=== PATIENT | female | born 1960 | race American Indian/Alaskan Native ===

== ENCOUNTER 2024-08-27 22:22 | Emergency (ER) | payer MEDICARE, MEDICAID, SELFPAY ==
--- NOTE | 2024-08-27 | ECG_ITS ---
Test Reason : chest pain Blood Pressure : */* mmHG Vent. Rate : 67 BPM Atrial Rate : 67 BPM P-R Int : 152 ms QRS Dur : 108 ms QT Int : 410 ms P-R-T Axes : 11 -23 14 degrees QTcB Int : 433 ms Normal sinus rhythm Incomplete right bundle branch block Minimal voltage criteria for LVH, may be normal variant ( R in aVL ) Borderline ECG No previous ECGs available Referred By: Generic ED Physician Electronically Signed By: MELISSA GIORDANO
[2024-08-27 22:24] VITALS: BP 131/64; PULSE 72; RESP 18; TEMP 36.7; O2SAT 98; BMI 31.0
[2024-08-27 22:59] LABS: MANUAL DIFF FLAG NO
[2024-08-27 23:00] LABS: Basophils Percent Auto 0.5 % (0-2); Eosinophils Absolute Auto 0.2 X10*3/uL (0.0-0.4); Eosinophils Percent Auto 2.8 % (0-4); Hemoglobin 11.9 g/dl (12.0-16.0); Imm Gran Abs Auto 0.03 X10*3/uL (0.00-0.03); Imm Gran Pct Auto 0.5 % (0.0-0.4); Lymphocytes Absolute Auto 1.4 X10*3/uL (1.2-4.9); Lymphocytes Percent Auto 21.8 % (20-40); Mean Corpuscular Hemoglobin 29.8 pg (27.0-33.0); Monocytes Absolute Auto 0.7 X10*3/uL (0.1-1.2); Monocytes Percent Auto 10.6 % (2-11); Neutrophils Absolute Auto 4.2 x10*3/uL (2.0-8.3); Neutrophils Percent Auto 63.8 % (45-73); Platelet Count 215 X10*3/uL (160-400); Red Cell Distribution Width 11.9 % (11.0-16.0); White Blood Count 6.5 X10*3/uL (4.8-10.8)
[2024-08-27 23:01] LABS: Appearance Urine Clear; Color Urine Yellow; Glucose Urine UA Negative (Negative); Leukocyte Esterase Urine Small (1+) (Negative); Nitrite Urine Negative (Negative); PH 6.5 (5.0-9.0); Specific Gravity - Urine 1.025 (1.005-1.025); UMIC TRIGGER UACC YES; Urine Blood Negative (Negative); Urine Ketones Negative (Negative); Urine Protein Negative (Neg-Trace)
[2024-08-27 23:10] LABS: Bacteria Urine None Seen (None Seen); Hyaline Casts Urine 0-2 /LPF (0-2); RBC Urine 0-2 /HPF (0-2); Squamous Epithelial Cell Urine 0-2 /HPF (0-2); UACC Culture Trigger YES; WBC Urine 0-5 /HPF (0-5)
[2024-08-27 23:16] LABS: Alanine Aminotransferase 22 U/L (0-31); Albumin Level 3.8 g/dL (3.5-5.0); Alkaline Phosphatase 123 U/L (39-117); Anion Gap 11 (12-20); Aspartate Amino Transferase 22 U/L (5-31); Bilirubin Total 0.2 mg/dL (0.0-1.0); Blood Urea Nitrogen 22 mg/dL (9-16); Calcium 8.9 mg/dL (8.4-10.2); Carbon Dioxide 25 mmol/L (22-29); Chloride 112 mmol/L (96-108); Creatinine Clr Calc Pharmacy 64.8; Estimated Glomerular Filt Rate 55; Glucose Random 122 mg/dL (60-115); Magnesium 1.9 mg/dL (1.6-2.6); Potassium 4.1 mmol/L (3.3-5.1); Sodium 144 mmol/L (135-145); Total Protein 6.9 g/dL (6.5-8.0)
[2024-08-27 23:25] LABS: Troponin-I High Sensitivity < 2.7 ng/L (<3.5-17.0)
[2024-08-27 23:36] LABS: Influenza A PCR NEGATIVE (Negative); Influenza B PCR NEGATIVE (Negative); Resp Syncy Virus RNA Qual PCR NEGATIVE (Negative); SARS COV2 PCR INHOUSE NEGATIVE (Negative)
--- NOTE | 2024-08-28 01:52 | ED_ITS ---
HPI - General Adult General Chief complaint: Headache Stated complaint: body aches Time Seen by Provider: 08/28/24 01:39 Source: patient Mode of arrival: ambulatory Limitations: no limitations History of Present Illness ED Provider: HPI narrative: Patient's history of chronic low back pain with sciatica comes here for worsening of the pain for last 1 got worse last 2 days also complaining of body aches no cough no fever no chills no urinary symptom Related Data Previous Rx's ?Medication ?Instructions ?Recorded cyclobenzaprine 10 mg tablet 10 mg PO Q8H #20 tabs 08/28/24 oxycodone 5 mg tablet 5 mg PO Q6H PRN pain #20 tabs 08/28/24 Allergies Allergy/AdvReac Type Severity Reaction Status Date / Time lisinopril Allergy Itching Verified 08/27/24 22:26 Review of Systems 2 Review of Systems: Yes all other systems are reviewed and are negative PMFSH Social History Social History Advance Directives: No Advance Directives Information Provided: Yes Do you have a plan to hurt others: No Plan Physical Exam ED Vital Signs: Vital Signs - 24 hr 08/27/24 22:24 08/28/24 02:48 08/28/24 03:09 Temperature 98.1 F 97.9 F 97.9 F Pulse Rate 72 61 61 Respiratory Rate 18 18 18 Blood Pressure 131/64 127/54 L 127/54 L Pulse Oximetry 98 98 98 Oxygen Delivery Method Room Air BMI result Body Mass Index 31.0 Appearance: Alert. Oriented X3. No acute distress. Eyes: No pallor or icterus ENT: Pharynx normal. Oral Mucosa moist Neck: Normal inspection. Neck supple. CVS: Normal heart rate and rhythm. Pulses normal. Respiratory: No respiratory distress. Equal air entry bilateral, no wheezing/rales/rhonchi Abdomen: Soft and nontender. Bowel sounds are present, no mass palpable, no CVA tenderness Skin: Skin warm and dry. Normal skin color. Normal skin turgor. Extremities: No lower extremity edema. No calf tenderness left sciatic notch tenderness SLR positive at 60 degrees Neuro: Oriented X 3. No motor deficit. No sensory deficit.No cerebellar signs , cranial nerves II-XII intact Medications Administered Discontinued Medications Generic Name Dose Route Start Last Admin Trade Name Freq PRN Reason Stop Dose Admin Cyclobenzaprine HCl 10 mg 08/28/24 01:49 08/28/24 02:12 Cyclobenzaprine Hcl 10 Mg Tablet PO 08/28/24 01:50 10 mg ONCE ONE Administration Oxycodone HCl 10 mg 08/28/24 01:49 08/28/24 02:12 Oxycodone Hcl Immed Release 5 Mg Tablet PO 08/28/24 01:50 10 mg ONCE ONE Administration Medical Decision Making Medical Decision Making [facility] Narrative: Patient with chronic low back pain with sciatica had previous workup and follow up with pain clinic no acute abnormal labs patient felt better after oxycodone patient is ambulatory in the ED Differential Diagnosis Differential Diagnoses: The differential diagnosis associated with the presentation includes Low back pain/sciatica/viral syndrome/UTI Lab Data [facility] Lab Attestation statement: I reviewed the patient's lab results. 08/27/24 22:53 08/27/24 22:53 Labs: Lab Results 08/27/24 08/27/24 Range/Units 22:53 22:55 WBC 6.5 (4.8-10.8) X10*3/uL RBC 4.00 L (4.20-5.50) X10*6/uL Hgb 11.9 L (12.0-16.0) g/dl Hct 34.0 L (37.0-47.0) % MCV 85.0 (80.0-98.0) fL MCH 29.8 (27.0-33.0) pg MCHC 35.0 (31.0-35.0) g/dl RDW 11.9 (11.0-16.0) % Plt Count 215 (160-400) X10*3/uL MPV 10.0 (9.4-12.3) fL Immature Gran % (Auto) 0.5 H (0.0-0.4) % Neut % (Auto) 63.8 (45-73) % Lymph % (Auto) 21.8 (20-40) % [place] % (Auto) 10.6 (2-11) % Eos % (Auto) 2.8 (0-4) % Baso % (Auto) 0.5 (0-2) % Lymph # (Auto) 1.4 (1.2-4.9) X10*3/uL [place] # (Auto) 0.7 (0.1-1.2) X10*3/uL Eos # (Auto) 0.2 (0.0-0.4) X10*3/uL Baso # (Auto) 0.0 (0.0-0.2) X10*3/uL Abs Immat Gran (auto) 0.03 (0.00-0.03) X10*3/uL Absolute Neuts (auto) 4.2 (2.0-8.3) x10*3/uL Absolute Nucleated RBC 0.000 (0.0-0.012) X10*3/uL Nucleated RBC % (auto) 0.0 (0.0-0.2) /100WBC Sodium 144 (135-145) mmol/L Potassium 4.1 (3.3-5.1) mmol/L Chloride 112 H (96-108) mmol/L Carbon Dioxide 25 (22-29) mmol/L Anion Gap 11 L (12-20) BUN 22 H (9-16) mg/dL Creatinine 1.01 (0.5-1.4) mg/dL Estim Creat Clear Calc 64.8 Estimated GFR 55 Random Glucose 122 H (60-115) mg/dL Calcium 8.9 (8.4-10.2) mg/dL Magnesium 1.9 (1.6-2.6) mg/dL Total Bilirubin 0.2 (0.0-1.0) mg/dL AST 22 (5-31) U/L ALT 22 (0-31) U/L Alkaline Phosphatase 123 H (39-117) U/L Troponin I High Sens < 2.7 (<3.5-17.0) ng/L Total Protein 6.9 (6.5-8.0) g/dL Albumin 3.8 (3.5-5.0) g/dL Urine Color Yellow Urine Appearance Clear Urine pH 6.5 (5.0-9.0) Ur Specific [place] 1.025 (1.005-1.025) Urine Protein Negative (Neg-Trace) mg/dL Urine Glucose (UA) Negative (Negative) mg/dL Urine Ketones Negative (Negative) mg/dL Urine Blood Negative (Negative) Urine Nitrite Negative (Negative) Ur Leukocyte Esterase Small (1+) H (Negative) Urine RBC 0-2 (0-2) /HPF Urine WBC 0-5 (0-5) /HPF Ur Squamous Epith Cells 0-2 (0-2) /HPF Urine Bacteria None Seen (None Seen) Hyaline Casts 0-2 (0-2) /LPF Influenza Type A (PCR) NEGATIVE (Negative) Influenza Type B (PCR) NEGATIVE (Negative) RSV RNA Qual (PCR) NEGATIVE (Negative) SARS-CoV-2 RNA (RT-PCR) NEGATIVE (Negative) Discharge Plan Discharge Clinical Impression: Sciatic pain Patient Disposition: Home, Self-Care Instructions: Sciatica (ED) Additional Instructions: Take pain medication muscle relaxant as prescribed Follow up with the back specialist Prescriptions: New cyclobenzaprine 10 mg tablet 10 mg PO Q8H Qty: 20 0RF oxycodone 5 mg tablet 5 mg PO Q6H PRN (Reason: pain) Qty: 20 0RF Rx Instructions: Partial Fill upon patient request. Interventions: ED Discharge Assessment Last Done: 08/28/24 03:09 Discharge Date/Time: 08/28/24 02:45 Print Language: Guatemalan
[2024-08-28] MEDS: oxyCODONE HCl Immed Release 5 MG TABLET 10 MG PO (02:12)
[2024-08-28] MEDS: Cyclobenzaprine HCl 10 MG TABLET PO (02:12)
--- OUTSIDE RECORDS SUMMARY | 2024-08-28 02:29 | XMS_ITS | Data Portability ---
Author Organization [facility] [place] [facility] MRI Address [address] [place] [address] Care Team Providers Care Cardiac Specialist Name Role Phone TRAVON MENDOZA Primary Care Provider TRAVON MENDOZA Referring Provider Assessment Encounter Date Assessment Date Assessment LastModified by Organization Details LastModified Time 06/25/2020 06/25/2020 Natural history discussed with patient at length regarding osteoarthritis of the knee. I recommended a intra-articular cortisone injection to the knee today which the patient has refused. She would like to try prescription strength anti-inflammatori es first as well as some home exercises rather than formal physical therapy. I have instructed the patient to take the anti-inflammatory with with food and discontinue all other NSAIDs including ibuprofen and Aleve. Follow-up with me in 1 month for clinical reassessment. If at that time, she continues to have persistent or worsening pain we will consider a intra-articular cortisone injection as well as aspiration. Not available 06/25/2020 11:12:37 Plan of Treatment Reminders Order Date Submit Date Provider Last Modified By Organization Details Last Modified Time Details Appointments None recorded. Lab None recorded. Referral None recorded. Procedures None recorded. Surgeries None recorded. Imaging None recorded. Medication Orders meloxicam 7.5 mg tablet 2020 021 [id number], [address], [place], [phone], 11:13:06 Patient TargetsNo targets recorded. Patient Instructions Encounter Date Encounter Id Patient Instructions Last Modified By Organization Details Last Modified Time 06/25/2020 [id number] knee: exercises Not available 06/25/2020 11:12:31 Reason for Referral None Reported. Medical Equipment None Reported. Allergies Allergen ID Allergen Name Allergen Category Reaction Reaction Severity Criticality Documentation Date Start Date Code Code System Note Provider Name and Address Organization Details Recorded Time 25731 lisinopri l medicatio n Not available Not available Not available 06/25/2020 26804 RxNorm Sandra wright [place] - [facility] 10:57:48 Medications Name Sig Start Date Stop Date Status Note LastModified by Organization Details LastModified Time cyclobenzapr ine 10 mg tablet active Not Available Not Available Not Available oxcarbazepin e 300 mg tablet TAKE ONE TABLET BY MOUTH EVERY MORNING AND TAKE ONE TO TWO TABLETS BY MOUTH EVERY NIGHT AT BEDTIME active Not Available Not Available N ot Available meloxicam 7.5 mg tablet TAKE 1 TABLET BY MOUTH EVERY DAY active Not Available Not Available No t Available cephalexin 500 mg capsule TAKE 1 CAPSULE BY MOUTH FOUR TIMES A DAY active Not Available Not Available Not Available trazodone 150 mg tablet TAKE 1 TABLET BY MOUTH ONCE DAILY active Not Available Not Available No t Available metformin 1,000 mg tablet TAKE ONE TABLET BY MOUTH TWICE A DAY active Not Available Not Available No t Available nystatin 100,000 unit/gram topical cream SERG 3 GRAMS AA BID FOR 10 DAYS FOR YEAST OR FUNGAL INFECTION active Not Available Not Available No t Available losartan 25 mg tablet TAKE ONE TABLET BY MOUTH DAILY active Not Available Not Available Not Available gabapentin 300 mg capsule TAKE ONE CAPSULE BY MOUTH THREE TIMES A DAY active Not Available Not Available Not Available celecoxib 100 mg capsule active Not Available Not Available Not Available fluoxetine 20 mg capsule TAKE 3 CAPSULES BY MOUTH ONCE DAILY active Not Available Not Available No t Available glipizide 5 mg tablet TAKE 1 TABLET BY MOUTH TWICE DAILY active Not Available Not Available No t Available naproxen 500 mg tablet active Not Available Not Available No t Available aripiprazole 5 mg tablet TAKE 1 TABLET BY MOUTH ONCE DAILY active Not Available Not Available No t Available aripiprazole 2 mg tablet TAKE ONE TABLET BY MOUTH DAILY active Not Available Not Available Not Available FreeStyle Lite Strips TEST TWICE A DAY active Not Available Not Available No t Available ketoconazole 2 % topical foam APPLY 1 APPLICATORF UL TO FEET TOPICALLY BID active Not Available Not Available No t Available TRUEplus Lancets 28 gauge TEST TWICE A DAY active Not Available Not Available No t Available Victoza 3-Adama 0.6 mg/0.1 mL (18 mg/3 mL) subcutaneous pen injector INJECT 1.8 MG SUBCUTANEOU SLY ONCE A DAY active Not Available Not Available No t Available Vitals Date Recorded Body height Body mass index (BMI) Body weight Provider Name and Address Organization Details Last Updated DateTime 06/25/2020 170.18 cm 38.7 kg/m2 547807.32 g Sandra Olivares MA - [facility] 06/25/2020 10:57:43 Social History None recorded. Functional Status None recorded. Mental Status None recorded. Family History Nothing Reported. Medical History Condition Response Coronary Artery Disease N Hereditary Defects N Gout N Tremors/Seizures/Dizziness/Epilepsy N Excessive Thirst/Fatigue N Lung Disease N Blood Clots N Fever, Chills, Headaches N Pacemaker N Heart Disease/Problems N Breathing Problems N Heart Attack (MT) N Sexually Transmitted Diseases N Bleeding Disorder/Tendencies or Anemia N Stomach Ulcers N Diabetes Y Skin Problems/Rash/Boils N Depression/Psychiatric Problems N Arthritis N Tuberculosis N Cancer N Stroke N Eye Problems N Leg or Foot Ulcers N HIV/AIDS N Chest Pain/Heart Attack/Arrhythmia N Urinary Pain/Frequency/Retention N Stomach Problems/Reflux/GERD N Hepatitis N Rheumatoid Arthritis N Hypertension/High Blood Pressure N Osteoporosis N Kidney Disease N Gynecological HistoryNo gynecological history recorded. Obstetrics History GPAL:G 0 P 0 0 0 0 Past Encounters Encounter ID Performer Location Encounter Start Date Encounter Closed Date Diagnosis/Indication Diagnosis SNOMED-CT Code Diagnosis ICD10 Code Diagnosis Note [id number] [facility] [address] [place] [phone] 06/25/2020 10:33:27 06/25/2020 13:16:27 Osteoarthritis of right knee joint 7202336476 77273 M17.11 Health Concerns Section Related Observation LastModified by Organization Detai ls LastModified Time None Recorded Concern Status LastModified by Organization Details LastModified Time None Recorded Advance Directives Directive None Recorded Payers Insurance Date Sequence Insurance Name Policy Number Policy Lopez Covered Member ID Lopez Member ID Guarantor Name 06/25/2020 1 [facility] - DOS PRIOR TO 2022 - DUAL ELIGIBLE (MEDICARE REPLACEMENT/AD VANTAGE - HMO) Margaret Samaniego [id number] Margaret Olivares Samaniego 06/25/2020 2 [place] [facility] Margaret Samaniego [id number] Margaret Samaniego Notes Date Note Type Note Provider Name and Address Organization Details Recorded Time 06/25/2020 text/html Patient is a tera y pleasant 60-year-old Welsh-speaking female who works as a assistant head cashier who presents with right knee pain over the last 2 months. She denies having any specific injury, trauma, fall prior to this starting. She does note that approximately 1 month ago she did slip on some black ice and fell and this further exacerbated her pain. Patient did go to [facility] where x-rays were taken. X-rays revealed that she has some mild osteoarthritis particularly well along the patellofemoral compartment. Medial and lateral compartment appeared to be well preserved. She notes significant stiffness, swelling, as well as is throbbing/aching discomfort coming from her right knee radiating down into her calf over the last 2 months. She denies having any locking, catching, buckling. Although she does note that she has limited range of motion particularly at the extremes of flexion due to the pain. She has been taking [id number] Tylenol as well as Aleve with minimal relief of her symptoms. OLEGARIO Ponce [address] [place] [address], [phone], [facility] 06/25/2020 11:14:08 OBGyn Episode No OBEpisode recorded.
--- OUTSIDE RECORDS SUMMARY | 2024-08-28 02:29 | XMS_ITS | Clinical Summary ---
Author Organization [facility] Address [address] [place] [address] Care Team Providers Care Tree Marker Name Role Phone Ofelia Quevedo Primary Care Provider [phone] Medications FLUoxetine (PROzac) 40 MG capsule 60 MG PO DAILY capsule 5 Active gabapentin (NEURONTIN) 100 MG capsule 100 MG PO TID capsule 5 Active glipiZIDE ER (GLUCOTROL XL) 5 MG 24 hr tablet 5 MG PO DAILY tablet 5 Active liraglutide (VICTOZA 2-JUAN PABLO) 0.6 mg/0.1 mL (18 mg/3 mL) PnIj 1.2 MG SQ DAILY Syringe 5 Active traZODone (DESYREL) 50 MG tablet 50 MG PO HS tablet 5 Active simvastatin (ZOCOR) 10 MG tablet 20 MG PO DAILY@2100 tablet 5 Active RANITIDINE HCL ORAL Take 150 mg by mouth every morning & every evening. Active OMEGA-3 FATTY ACIDS-FISH OIL ORAL Take 1,000 mg by mouth daily. Active metformin HCl (METFORMIN ORAL) Take 1,000 mg by mouth 2 times a day with breakfast & dinner. Active ASPIRIN ORAL 81 MG PO Active Immunizations Name Administration Dates Next Due COVID-19 Vaccine ? (MODERNA) 11/05/2021,07/13/2020,06/15/2020 Influenza Vaccine - EGG FREE MDCK - MDV (FLUCELVAX) 02/16/2024 Pneumococcal polysaccharide vaccine 23-valent (PPSV23/[id number]) 07/10/2021 Family History Medical History Relation Comments No Known Problems Brother No Known Problems Cousin No Known Problems Daughter No Known Problems Father No Known Problems Maternal Aunt No Known Problems Maternal Grandfather No Known Problems Maternal Grandmother No Known Problems Maternal Uncle No Known Problems Mother No Known Problems Other No Known Problems Paternal Aunt No Known Problems Paternal Grandfather No Known Problems Paternal Grandmother No Known Problems Paternal Uncle No Known Problems Sister No Known Problems Son Relation Status Comments Brother Cousin Daughter Father Maternal Aunt Maternal Grandfather Maternal Grandmother Maternal Uncle Mother Other Paternal Aunt Paternal Grandfather Paternal Grandmother Paternal Uncle Sister Son Social History Tobacco Use Types Packs/Day Years Used Date Smoking Tobacco: Never Assessed Comments No Sex and Gender Information Value Date Recorded Sex Assigned at Female 04/07/2024 4:37 PM EST Legal Sex Female 4:39 PM EST Gender Identity Female 04/07/2024 4:37 PM EST Sexual Orientation Not on file Last Filed Vital Signs Vital Sign Reading Time Taken Comments Blood Pressure - - Pulse - - Temperature - - Respiratory Rate - - Oxygen Saturation - - Inhaled Oxygen Concentration - - Weight 108 kg (238 lb) 03/08/2015 10:04 PM EST Height 170.2 cm (5' 7 ) 03/08/2015 10:04 PM EST Body Mass Index 37.28 03/08/2015 10:04 PM EST Plan of Treatment Health Maintenance Due Date Last Done Comments Blood Pressure 1960 Urine Microalbumin 1960 Depression Screening 1964 Hepatitis C Screening 02/26/1978 Pap Smear 02/26/1981 Cervical Cancer Screening 02/26/1990 HPV/Cotest 02/26/1990 CT Colonography 02/26/2005 Colonoscopy 02/26/2005 Colorectal Cancer Screening 02/26/2005 FIT 02/26/2005 FOBT 02/26/2005 Multitarget Stool DNA (Cologuard) 02/26/2005 Sigmoidoscopy 02/26/2005 Zoster Vaccine (1 of 2) 02/26/2010 DTaP,Tdap,and Td Vaccines (2 - Tdap) 08/21/2020 08/21/2010 Pneumococcal Vaccine (2 of 2 - PCV) 07/10/2022 07/10/2021, 01/16/2012, 02/13/2011 COVID-19 Vaccine (4 - 2024-25 season) 2023 11/05/2021, 07/13/2020, 06/15/2020 Hemoglobin A1c 08/22/2024 02/23/2024, 08/19, 05/30/2022, Additional history exists Influenza Vaccine (Season Ended) 2024 02/16/2024, 12/31/2021, 01/23/2021, Additional history exists Lipid Panel 02/22/2025 02/23/2024, 1108/2023, 02/23/2024, Additional history exists Breast Cancer Screening 04/05/2026 04/05/20 24, 12/25/2021, 12/25/2021 Pneumococcal Vaccine: Pediatrics (0 to 5 Years) and At-Risk Patients (6 to 64 Years) Aged Out 07/10/2021, 01/16/2012, 02/13/2011 No longer eligible based on patient's age to complete this topic Meningococcal Vaccines Aged Out No lo nger eligible based on patient's age to complete this topic Procedures Procedure Name Priority Date/Time Associated Diagnosis Comments MAMMO SCREENING TOMOSYNTHESIS BILATERAL Routine 04/05/2024 2:21 PM EST Encounter for screening mammogram for malignant neoplasm of breast from Last 3 Months or Most Recently Relevant to Health Maintenance Results * Mammo Screening Tomosynthesis Bilateral (04/05/2024 2:21 PM EST) Anatomical Region Laterality Modality Breast Bilateral Mammography 04/06/2024 9:03 AM EST Impressions 04/06/2024 9:00 AM EST No mammographic evidence of malignancy. BI-RADS Category: ??1 Negative. Side: ??Bilateral. Recommendation: ??Routine Screening Mammogram. Narrative 04/06/2024 9:00 AM EST PROCEDURE: SCREENING BILATERAL 3D MAMMOGRAM WITH CAD, HISTORY: Annual Mammogram. ??Routine Screening. COMPARISON: Comparison is made to prior studies. TECHNIQUE: Digital craniocaudal and mediolateral oblique tomographic views and synthetic 2D views of each breast were performed. ??Computer assisted detection was used in the interpretation of this examination. FINDINGS: Tissue density: A - The breasts are almost entirely fatty. There is no suspicious mass/architectural distortion or clustered microcalcifications in either breast. No significant change. Procedure Note Daniel Zacarias MD - 04/06/2024 PROCEDURE: SCREENING BILATERAL 3D MAMMOGRAM WITH CAD, HISTORY: Annual Mammogram. Routine Screening. COMPARISON: Comparison is made to prior studies. TECHNIQUE: Digital craniocaudal and mediolateral oblique tomographic views andsynthetic 2D views of each breast were performed. Computer assisteddetection was used in the interpretation of this examination. FINDINGS: Tissue density: A - The breasts are almost entirely fatty. There is no suspicious mass/architectural distortion or clusteredmicrocalcifications in either breast. No significant change. IMPRESSION: No mammographic evidence of malignancy. BI-RADS Category: 1 Negative. Side: Bilateral. Recommendation: Routine Screening Mammogram. Ofelia Quevedo [facility] [place] ORDERABLES Fin al Result from Last 3 Months or Most Recently Relevant to Health Maintenance Insurance MEDICARE [facility] Care Teams Tree Marker Relationship Specialty Start Date End Date Ofelia Quevedo [address] [facility] [place] [id number] PCP - General 03/29/24
[2024-08-28 02:48] VITALS: BP 127/54; PULSE 61; RESP 18; TEMP 36.6; O2SAT 98
[2024-08-28 03:09] VITALS: BP 127/54; PULSE 61; RESP 18; TEMP 36.6; O2SAT 98
== END 2024-08-28 02:45 | disposition home or self-care (01) ==
PROVIDERS: Emergency Provider Internal Medicine; PCP Internal Medicine
DX: M54.40 Lumbago with sciatica, unspecified side (principal); R07.89 Other chest pain; R51.9 Headache, unspecified; M79.10 Myalgia, unspecified site; Z03.818 Encounter for observation for suspected exposure to other biological agents ruled out; Z79.899 Other long term (current) drug therapy
CPT/HCPCS: 0241U; 80053; 81001; 83735; 84484; 85025; 87086; 93005; 99283; 99284

== ENCOUNTER → 2024-08-27 22:36 | Outpatient (BNV) | payer MEDICARE, MEDICAID, SELFPAY | PROVIDERS: Emergency Provider Internal Medicine; Visit Provider Internal Medicine | DX: R07.9 Chest pain, unspecified (principal); I45.19 Other right bundle-branch block; R94.31 Abnormal electrocardiogram [ECG] [EKG] | CPT/HCPCS: 93010 ==